=== PATIENT | female | born 1995 | race Caucasian/White ===

== ENCOUNTER 2017-07-20 13:44 | Emergency (ER) | payer OTHER ==
[~2017-07-20] VITALS: Ht 162.6 cm; Wt 63.0 kg
[2017-07-20 13:45] VITALS: BP 122/79
== END 2017-07-20 15:09 | disposition home or self-care (01) ==
LOC: ED 15:00
DX: K22.6 Gastro-esophageal laceration-hemorrhage syndrome (principal); Z88.1 Allergy status to other antibiotic agents
CPT/HCPCS: 99283